=== PATIENT | female | born 1955 | race Caucasian/White ===

== ENCOUNTER 2023-03-01 20:25 | Emergency (ER) | payer BC ==
[~2023-03-01] VITALS: Ht 170.2 cm; Wt 150.0 kg
[2023-03-01 21:07] LABS: APPEARANCE, URINE MANUAL CLOUDY (CLEAR)
[2023-03-01 21:08] LABS: COLOR, URINE MANUAL YELLOW (YELLOW)
[2023-03-01 21:09] LABS: BILIRUBIN, URINE MANUAL NEGATIVE (NEGATIVE); GLUCOSE, URINE (UA) MANUAL NEGATIVE (NEGATIVE); KETONE, URINE MANUAL NEGATIVE (NEGATIVE); PROTEIN, URINE MANUAL 2+ mg/dL (NEGATIVE); UROBILINOGEN, URINE MANUAL NORMAL (NORMAL)
[2023-03-01 21:10] LABS: BLOOD URINE MANUAL POSITIVE (NEGATIVE); LEUKOCYTE ESTERASE, URINE MAN POSITIVE (NEGATIVE); NITRITE, URINE MANUAL NEGATIVE (NEGATIVE)
[2023-03-01 21:25] LABS: RBC, URINE TNTC /hpf (0-3); WBC, URINE TNTC /hpf (0-3)
[2023-03-01 21:26] LABS: RENAL EPITHELIAL CELLS, URINE SMALL AMOUNT /hpf; SQUAMOUS EPITHELIAL CELL URINE MOD AMOUNT /hpf (SMALL AMT)
[2023-03-01 21:29] LABS: AMORPHOUS SEDIMENT, URINE SMALL AMOUNT (NEGATIVE); BACTERIA, URINE SMALL AMOUNT; HYALINE CAST, URINE NONE SEEN /lpf (0-1)
[2023-03-01 23:40] LABS: BASO # 0.1 10^3/uL (0.0-0.2); BASO % 0.6 % (0.0-1.0); EOS % 0.1 % (0.0-3.0); HEMATOCRIT 46.7 % (36.0-47.0); HEMOGLOBIN 15.8 g/dl (12.0-15.5); LYMPH # 0.8 10^3/uL (1.5-5.0); LYMPH % 6.6 % (24.0-44.0); MEAN CORPUSCULAR HEMOGLOBIN 30.5 pg (27.0-33.0); MEAN CORPUSCULAR HGB CONC 33.8 g/dl (32.0-36.5); MEAN CORPUSCULAR VOLUME 90.2 fl (80.0-96.0); MONO # 0.3 10^3/uL (0.0-0.8); MONO % 2.1 % (2.0-8.0); NEUTROPHILS # 10.7 10^3/uL (1.5-8.5); NEUTROPHILS % 90.3 % (36.0-66.0); PLATELET COUNT, AUTOMATED 346 10^3/uL (150-450); RED BLOOD COUNT 5.18 10^6/uL (4.00-5.40); WHITE BLOOD COUNT 11.9 10^3/uL (4.0-10.0)
[2023-03-02 00:18] LABS: ALBUMIN 4.6 G/DL (3.2-5.2); BILIRUBIN,DIRECT 0.2 MG/DL (<0.4); BILIRUBIN,TOTAL 0.9 MG/DL (0.3-1.2); TOTAL PROTEIN 8.3 G/DL (5.7-8.2)
[2023-03-02] MEDS ORDERED: BACTRIM 160MG/800MG DS TAB PO ONE (01:00)
[2023-03-02 02:16] VITALS: BP 175/89; TEMP 98.7; O2SAT 99
== END 2023-03-02 02:26 | disposition left against medical advice (07) ==
LOC: M ED 20:25
DX: N39.0 Urinary tract infection, site not specified (principal); K56.609 Unspecified intestinal obstruction, unspecified as to partial versus complete obstruction; Z53.9 Procedure and treatment not carried out, unspecified reason; Z95.0 Presence of cardiac pacemaker; Z88.0 Allergy status to penicillin